=== PATIENT | female | born 1930 | race Caucasian/White ===

== ENCOUNTER 2016-03-19 10:39 | Outpatient (CLI) | payer MEDICARE, BC | END 2016-03-19 10:40 | disposition home or self-care (01) | DX: I48.91 Unspecified atrial fibrillation (principal); Z79.01 Long term (current) use of anticoagulants; Z79.899 Other long term (current) drug therapy ==

== ENCOUNTER 2016-04-09 13:42 | Outpatient (CLI) | payer MEDICARE, BC | END 2016-04-09 13:43 | disposition home or self-care (01) | DX: I48.91 Unspecified atrial fibrillation (principal); Z79.01 Long term (current) use of anticoagulants; Z79.899 Other long term (current) drug therapy ==

== ENCOUNTER 2016-05-08 13:06 | Outpatient (CLI) | payer MEDICARE, BC | END 2016-05-08 13:07 | disposition home or self-care (01) | DX: I48.91 Unspecified atrial fibrillation (principal); Z79.01 Long term (current) use of anticoagulants; Z79.899 Other long term (current) drug therapy ==

== ENCOUNTER 2016-06-05 14:41 | Outpatient (CLI) | payer MEDICARE, BC | END 2016-06-05 14:42 | disposition home or self-care (01) | DX: I48.91 Unspecified atrial fibrillation (principal); Z79.01 Long term (current) use of anticoagulants; Z79.899 Other long term (current) drug therapy ==

== ENCOUNTER 2016-07-03 08:00 | Outpatient (CLI) | payer MEDICARE, BC | END 2016-07-03 08:01 | disposition home or self-care (01) | DX: I48.91 Unspecified atrial fibrillation (principal); Z79.01 Long term (current) use of anticoagulants; Z79.899 Other long term (current) drug therapy ==

== ENCOUNTER 2016-07-31 13:34 | Outpatient (CLI) | payer MEDICARE, BC | END 2016-07-31 13:35 | disposition home or self-care (01) | LOC: LAB.F 13:34 | PROVIDERS: ATTEND Internal Medicine Cardiovascular Disease | DX: I48.91 Unspecified atrial fibrillation (principal); Z79.01 Long term (current) use of anticoagulants; Z79.899 Other long term (current) drug therapy | CPT/HCPCS: 85610 ==

== ENCOUNTER 2016-08-22 13:03 | Outpatient (CLI) | payer MEDICARE, BC | END 2016-08-22 13:04 | disposition home or self-care (01) | LOC: LAB.F 13:03 | PROVIDERS: ATTEND Internal Medicine Cardiovascular Disease | DX: I48.91 Unspecified atrial fibrillation (principal); Z79.01 Long term (current) use of anticoagulants; Z79.899 Other long term (current) drug therapy | CPT/HCPCS: 85610 ==

== ENCOUNTER 2016-09-19 14:07 | Outpatient (CLI) | payer MEDICARE, BC | END 2016-09-19 14:08 | disposition home or self-care (01) | LOC: LAB.F 14:07 | PROVIDERS: ATTEND Internal Medicine Cardiovascular Disease | DX: I48.91 Unspecified atrial fibrillation (principal); Z79.01 Long term (current) use of anticoagulants; Z79.899 Other long term (current) drug therapy | CPT/HCPCS: 85610 ==

== ENCOUNTER 2016-10-17 11:05 | Outpatient (CLI) | payer MEDICARE, BC | END 2016-10-17 11:06 | disposition home or self-care (01) | LOC: LAB.F 11:05 | PROVIDERS: ATTEND Internal Medicine Cardiovascular Disease | DX: I48.91 Unspecified atrial fibrillation (principal); Z79.01 Long term (current) use of anticoagulants; Z79.899 Other long term (current) drug therapy | CPT/HCPCS: 85610 ==

== ENCOUNTER 2016-11-14 14:04 | Outpatient (CLI) | payer MEDICARE, BC | END 2016-11-14 14:05 | disposition home or self-care (01) | LOC: LAB.F 14:04 | PROVIDERS: ATTEND Internal Medicine Cardiovascular Disease | DX: I48.91 Unspecified atrial fibrillation (principal); Z79.01 Long term (current) use of anticoagulants; Z79.899 Other long term (current) drug therapy | CPT/HCPCS: 85610 ==

== ENCOUNTER 2016-12-17 13:50 | Outpatient (CLI) | payer MEDICARE, BC | END 2016-12-17 13:51 | disposition home or self-care (01) | LOC: LAB.F 13:50 | PROVIDERS: ATTEND Internal Medicine Cardiovascular Disease | DX: I48.91 Unspecified atrial fibrillation (principal); Z79.01 Long term (current) use of anticoagulants; Z79.899 Other long term (current) drug therapy | CPT/HCPCS: 85610 ==

== ENCOUNTER 2016-12-31 13:18 | Outpatient (CLI) | payer MEDICARE, BC | END 2016-12-31 13:19 | disposition home or self-care (01) | LOC: LAB.F 13:18 | PROVIDERS: ATTEND Internal Medicine Cardiovascular Disease | DX: I48.91 Unspecified atrial fibrillation (principal); Z79.01 Long term (current) use of anticoagulants; Z79.899 Other long term (current) drug therapy | CPT/HCPCS: 85610 ==

== ENCOUNTER 2017-01-21 14:54 | Outpatient (CLI) | payer MEDICARE, BC | END 2017-01-21 14:55 | disposition home or self-care (01) | LOC: LAB.F 14:54 | PROVIDERS: ATTEND Internal Medicine Cardiovascular Disease | DX: I48.91 Unspecified atrial fibrillation (principal); Z79.01 Long term (current) use of anticoagulants; Z79.899 Other long term (current) drug therapy | CPT/HCPCS: 85610 ==

== ENCOUNTER 2017-02-04 14:22 | Outpatient (CLI) | payer MEDICARE, BC | END 2017-02-04 14:23 | disposition home or self-care (01) | LOC: LAB.F 14:22 | PROVIDERS: ATTEND Internal Medicine Cardiovascular Disease | DX: I48.91 Unspecified atrial fibrillation (principal); Z79.01 Long term (current) use of anticoagulants; Z79.899 Other long term (current) drug therapy | CPT/HCPCS: 85610 ==

== ENCOUNTER 2017-02-18 15:13 | Outpatient (CLI) | payer MEDICARE, BC | END 2017-02-18 15:14 | disposition home or self-care (01) | LOC: LAB.F 15:13 | PROVIDERS: ATTEND Internal Medicine Cardiovascular Disease | DX: I48.91 Unspecified atrial fibrillation (principal); Z79.01 Long term (current) use of anticoagulants; Z79.899 Other long term (current) drug therapy | CPT/HCPCS: 85610 ==

== ENCOUNTER 2017-03-04 14:37 | Outpatient (CLI) | payer MEDICARE, BC | END 2017-03-04 14:38 | disposition home or self-care (01) | LOC: LAB.F 14:37 | PROVIDERS: ATTEND Internal Medicine Cardiovascular Disease | DX: I48.91 Unspecified atrial fibrillation (principal); Z51.81 Encounter for therapeutic drug level monitoring; Z79.01 Long term (current) use of anticoagulants | CPT/HCPCS: 85610 ==

== ENCOUNTER 2017-03-25 15:28 | Outpatient (CLI) | payer MEDICARE, BC | END 2017-03-25 15:29 | disposition home or self-care (01) | LOC: LAB.F 15:28 | PROVIDERS: ATTEND Internal Medicine Cardiovascular Disease | DX: I48.91 Unspecified atrial fibrillation (principal) | CPT/HCPCS: 85610 ==

== ENCOUNTER 2017-04-07 14:53 | Outpatient (CLI) | payer MEDICARE, BC | END 2017-04-07 14:54 | disposition home or self-care (01) | LOC: LAB.F 14:53 | PROVIDERS: ATTEND Internal Medicine Cardiovascular Disease | DX: I48.91 Unspecified atrial fibrillation (principal) | CPT/HCPCS: 85610 ==

== ENCOUNTER 2017-04-18 13:12 | Outpatient (CLI) | payer MEDICARE, BC | END 2017-04-18 13:13 | disposition home or self-care (01) | LOC: LAB.F 13:12 | PROVIDERS: ATTEND Internal Medicine Cardiovascular Disease | DX: I48.91 Unspecified atrial fibrillation (principal) | CPT/HCPCS: 85610 ==

== ENCOUNTER 2017-04-25 14:50 | Outpatient (CLI) | payer MEDICARE, BC | END 2017-04-25 14:51 | disposition home or self-care (01) | LOC: LAB.F 14:50 | PROVIDERS: ATTEND Internal Medicine Cardiovascular Disease | DX: I48.91 Unspecified atrial fibrillation (principal) | CPT/HCPCS: 85610 ==

== ENCOUNTER 2017-05-09 14:28 | Outpatient (CLI) | payer MEDICARE, BC | END 2017-05-09 14:29 | disposition home or self-care (01) | LOC: LAB.F 14:28 | PROVIDERS: ATTEND Internal Medicine Cardiovascular Disease | DX: I48.91 Unspecified atrial fibrillation (principal) | CPT/HCPCS: 85610 ==

== ENCOUNTER 2017-05-22 14:13 | Outpatient (CLI) | payer MEDICARE, BC | END 2017-05-22 14:14 | disposition home or self-care (01) | LOC: LAB.F 14:13 | PROVIDERS: ATTEND Internal Medicine Cardiovascular Disease | DX: I48.91 Unspecified atrial fibrillation (principal) | CPT/HCPCS: 85610 ==

== ENCOUNTER 2017-06-06 10:44 | Outpatient (CLI) | payer MEDICARE, BC | END 2017-06-06 10:45 | disposition home or self-care (01) | LOC: LAB.F 10:44 | PROVIDERS: ATTEND Internal Medicine Cardiovascular Disease | DX: I48.91 Unspecified atrial fibrillation (principal) | CPT/HCPCS: 85610 ==

== ENCOUNTER 2017-06-19 13:01 | Outpatient (CLI) | payer MEDICARE, BC | END 2017-06-19 13:02 | disposition home or self-care (01) | LOC: LAB.F 13:01 | PROVIDERS: ATTEND Internal Medicine Cardiovascular Disease | DX: I48.91 Unspecified atrial fibrillation (principal) | CPT/HCPCS: 85610 ==

== ENCOUNTER 2017-07-10 12:33 | Outpatient (CLI) | payer MEDICARE, BC | END 2017-07-10 12:34 | disposition home or self-care (01) | LOC: LAB.F 12:33 | PROVIDERS: ATTEND Internal Medicine Cardiovascular Disease | DX: I48.91 Unspecified atrial fibrillation (principal) | CPT/HCPCS: 85610 ==

== ENCOUNTER 2017-08-01 11:05 | Outpatient (CLI) | payer MEDICARE, BC | END 2017-08-01 11:06 | disposition home or self-care (01) | LOC: LAB.F 11:05 | PROVIDERS: ATTEND Internal Medicine Cardiovascular Disease | DX: I48.91 Unspecified atrial fibrillation (principal) | CPT/HCPCS: 85610 ==

== ENCOUNTER 2017-09-24 13:54 | Outpatient (CLI) | payer MEDICARE, BC | END 2017-09-24 13:55 | disposition home or self-care (01) | LOC: LAB.F 13:54 | PROVIDERS: ATTEND Internal Medicine Cardiovascular Disease | DX: I48.91 Unspecified atrial fibrillation (principal) | CPT/HCPCS: 85610 ==

== ENCOUNTER 2017-10-29 10:20 | Outpatient (CLI) | payer MEDICARE, BC | END 2017-10-29 10:21 | disposition home or self-care (01) | LOC: LAB.F 10:20 | PROVIDERS: ATTEND Internal Medicine Cardiovascular Disease | DX: I48.91 Unspecified atrial fibrillation (principal) | CPT/HCPCS: 85610 ==

== ENCOUNTER 2017-11-27 14:23 | Outpatient (CLI) | payer MEDICARE, BC | END 2017-11-27 14:24 | disposition home or self-care (01) | LOC: LAB.F 14:23 | PROVIDERS: ATTEND Internal Medicine Cardiovascular Disease | DX: I48.91 Unspecified atrial fibrillation (principal) | CPT/HCPCS: 85610 ==

== ENCOUNTER 2017-12-11 09:14 | Outpatient (CLI) | payer MEDICARE, BC ==
[2017-12-11 20:13] LABS: PT - PROTHROMBIN TIME 48.6 secs (9.9-12.6)
[2017-12-11 20:14] LABS: INR 4.6 (0.8-1.2)
== END 2017-12-11 09:15 | disposition home or self-care (01) ==
LOC: LAB.F 09:14
PROVIDERS: ATTEND Internal Medicine Cardiovascular Disease
DX: I48.91 Unspecified atrial fibrillation (principal)
CPT/HCPCS: 36415; 85610

== ENCOUNTER 2017-12-22 10:49 | Outpatient (CLI) | payer MEDICARE, BC | END 2017-12-22 10:50 | disposition home or self-care (01) | LOC: LAB.F 10:49 | PROVIDERS: ATTEND Internal Medicine Cardiovascular Disease | DX: I48.91 Unspecified atrial fibrillation (principal) | CPT/HCPCS: 85610 ==

== ENCOUNTER 2018-01-07 10:31 | Outpatient (CLI) | payer MEDICARE, BC | END 2018-01-07 10:32 | disposition home or self-care (01) | LOC: LAB.F 10:31 | PROVIDERS: ATTEND Internal Medicine Cardiovascular Disease | DX: I48.91 Unspecified atrial fibrillation (principal) | CPT/HCPCS: 85610 ==

== ENCOUNTER 2018-02-04 11:08 | Outpatient (CLI) | payer MEDICARE, BC | END 2018-02-04 11:09 | disposition home or self-care (01) | LOC: LAB.F 11:08 | PROVIDERS: ATTEND Internal Medicine Cardiovascular Disease | DX: I48.91 Unspecified atrial fibrillation (principal) | CPT/HCPCS: 85610 ==

== ENCOUNTER 2018-02-18 13:37 | Outpatient (CLI) | payer MEDICARE, BC | END 2018-02-18 13:38 | disposition home or self-care (01) | LOC: LAB.F 13:37 | PROVIDERS: ATTEND Internal Medicine Cardiovascular Disease | DX: I48.91 Unspecified atrial fibrillation (principal) | CPT/HCPCS: 85610 ==

== ENCOUNTER 2018-03-04 12:45 | Outpatient (CLI) | payer MEDICARE, BC | END 2018-03-04 12:46 | disposition home or self-care (01) | LOC: DI 12:45 | PROVIDERS: ATTEND Internal Medicine Cardiovascular Disease | DX: I48.91 Unspecified atrial fibrillation (principal); I50.30 Unspecified diastolic (congestive) heart failure; I08.3 Combined rheumatic disorders of mitral, aortic and tricuspid valves | CPT/HCPCS: 93306 ==

== ENCOUNTER 2018-03-11 13:31 | Outpatient (CLI) | payer MEDICARE, BC | END 2018-03-11 13:32 | disposition home or self-care (01) | LOC: LAB.F 13:31 | PROVIDERS: ATTEND Internal Medicine Cardiovascular Disease | DX: I48.91 Unspecified atrial fibrillation (principal) | CPT/HCPCS: 85610 ==

== ENCOUNTER 2018-04-08 11:20 | Outpatient (CLI) | payer MEDICARE, BC | END 2018-04-08 11:21 | disposition home or self-care (01) | LOC: LAB.F 11:20 | PROVIDERS: ATTEND Internal Medicine Cardiovascular Disease | DX: I48.91 Unspecified atrial fibrillation (principal) | CPT/HCPCS: 85610 ==

== ENCOUNTER 2018-05-06 08:00 | Outpatient (CLI) | payer MEDICARE, BC | END 2018-05-06 23:59 | disposition home or self-care (01) | LOC: LAB.F 08:00 | PROVIDERS: ATTEND Internal Medicine Cardiovascular Disease | DX: I48.91 Unspecified atrial fibrillation (principal) | CPT/HCPCS: 85610 ==

== ENCOUNTER 2018-05-11 13:19 | Outpatient (CLI) | payer MEDICARE, BC | END 2018-05-11 13:20 | disposition home or self-care (01) | LOC: LAB.F 13:19 | PROVIDERS: ATTEND Internal Medicine Cardiovascular Disease | DX: I48.91 Unspecified atrial fibrillation (principal) | CPT/HCPCS: 85610 ==

== ENCOUNTER 2018-05-18 13:42 | Outpatient (CLI) | payer MEDICARE, BC | END 2018-05-18 13:43 | disposition home or self-care (01) | LOC: LAB.F 13:42 | PROVIDERS: ATTEND Internal Medicine Cardiovascular Disease | DX: I48.91 Unspecified atrial fibrillation (principal) | CPT/HCPCS: 85610 ==

== ENCOUNTER 2018-05-25 10:09 | Outpatient (CLI) | payer MEDICARE, BC | END 2018-05-25 10:10 | disposition home or self-care (01) | LOC: LAB.F 10:09 | PROVIDERS: ATTEND Internal Medicine Cardiovascular Disease | DX: I48.91 Unspecified atrial fibrillation (principal) | CPT/HCPCS: 85610 ==

== ENCOUNTER 2018-06-03 13:01 | Outpatient (CLI) | payer MEDICARE, BC | END 2018-06-03 13:02 | disposition home or self-care (01) | LOC: LAB.F 13:01 | PROVIDERS: ATTEND Internal Medicine Cardiovascular Disease | DX: I48.91 Unspecified atrial fibrillation (principal) | CPT/HCPCS: 85610 ==

== ENCOUNTER 2018-06-12 08:00 | Outpatient (CLI) | payer MEDICARE, BC | END 2018-06-12 23:59 | disposition home or self-care (01) | LOC: LAB.F 08:00 | PROVIDERS: ATTEND Internal Medicine Cardiovascular Disease | DX: I48.91 Unspecified atrial fibrillation (principal) | CPT/HCPCS: 85610 ==

== ENCOUNTER 2018-06-23 14:10 | Outpatient (CLI) | payer MEDICARE, BC | END 2018-06-23 14:11 | disposition home or self-care (01) | LOC: LAB.F 14:10 | PROVIDERS: ATTEND Internal Medicine Cardiovascular Disease | DX: I48.91 Unspecified atrial fibrillation (principal) | CPT/HCPCS: 85610 ==

== ENCOUNTER 2018-07-06 11:23 | Outpatient (CLI) | payer MEDICARE, BC ==
--- NOTE | 2018-07-06 13:04 | XRAY Report ---
Reason: HIP PAIN Procedure Date: 07/06/2018 Accession Number: [id number] / [id number] Procedure: XR - Hips 2V BILAT CPT Code: FULL RESULT: EXAM: BILATERAL HIP RADIOGRAPHY EXAM DATE: 07/06/2018 11:59 AM. CLINICAL HISTORY: Hip pain, greater on the left side. COMPARISON: None. TECHNIQUE: 2 views each. FINDINGS: Bones: No fractures or bone destructive lesion. Right Hip: No dislocation. The hip joint space is preserved. Left Hip: No dislocation. The hip joint space is preserved. Soft Tissues: No soft tissue swelling or periarticular calcification. There is a cluster of ill-defined foci of small calcification in the left mid-lower pelvic area, overall 3.2 cm, likely calcified fibroid. Other: Moderate degenerative disk disease at L4-L5 is noted. IMPRESSION: 1. Negative bilateral hip radiography. 2. Moderate degenerative disk disease in the lower lumbar spine. 3. A cluster of small calcified foci in the left mid low pelvis, likely calcified uterine fibroid, otherwise nonspecific. RADIA
== END 2018-07-06 11:24 | disposition home or self-care (01) ==
LOC: DI 11:23
PROVIDERS: ATTEND Physician Assistant
DX: M51.36 Other intervertebral disc degeneration, lumbar region (principal)
CPT/HCPCS: 73521

== ENCOUNTER 2018-07-21 13:50 | Outpatient (CLI) | payer MEDICARE, BC | END 2018-07-21 13:51 | disposition home or self-care (01) | LOC: LAB.F 13:50 | PROVIDERS: ATTEND Internal Medicine Cardiovascular Disease | DX: I48.91 Unspecified atrial fibrillation (principal) | CPT/HCPCS: 85610 ==

== ENCOUNTER 2018-07-28 13:14 | Outpatient (CLI) | payer MEDICARE, BC | END 2018-07-28 13:15 | disposition home or self-care (01) | LOC: LAB.F 13:14 | PROVIDERS: ATTEND Internal Medicine Cardiovascular Disease | DX: I48.91 Unspecified atrial fibrillation (principal) | CPT/HCPCS: 85610 ==

== ENCOUNTER 2018-08-09 18:49 | Emergency (ER) | payer MEDICARE, BC ==
[2018-08-09] MEDS ORDERED: MORPHINE 2 MG/ML SYRINGE IVP STA (19:46)
[2018-08-09] MEDS ORDERED: ONDANSETRON 4 MG/2 ML VIAL IVP STA (19:46)
[2018-08-09] MEDS ORDERED: TETANUS/DIPHTHERIA/PERTUSSIS 0.5 ML SYRINGE IM ONE (19:47)
--- NOTE | 2018-08-09 19:47 | ED Physician Documentation ---
History of Present Illness - Stated complaint Stated Complaint: GLF - Chief complaint Chief Complaint: General - History obtained from History obtained from: Patient - History of Present Illness Timing: Prior to arrival - Additonal information Additional information: Is an 87-year-old woman who was working out in her garden when she tripped over a small fencing that she put up to protect her peonies. She fell breaking her fall with her right wrist. She does not remember hitting her head but she has an abrasion there. She did not pass out. The injury occurred about an hour ago and she complains of pain only in the right wrist and her chronic back pain. Denied neck pain or pain in the lower extremities at all. She has some feeling of tingling in the fingers but no complete loss of sensation. She denies shortness of breath. She does take Coumadin. Review of Systems Skin: reports: Abrasion (s) Musculoskeletal: reports: Back pain (Chronic), Extremity pain (Right wrist). 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 : Chronic bladder infection HEENT: Chronic hearing loss Psych: None Musculoskeletal: Osteoarthritis Derm: None - Past Surgical History Past Surgical History: Yes General: Appendectomy Ortho: Shoulder arthroplasty HEENT: Cataracts - Present Medications Home Medications: Ambulatory Orders Medication Instructions Recorded Confirmed RX: Furosemide 40 mg PO DAILY 05/22/15 10/11/15 RX: Omeprazole 20 mg PO DAILY 05/22/15 10/11/15 RX: Oxybutynin Chloride 1 tab PO DAILY 05/22/15 10/11/15 RX: Warfarin [Coumadin] 1 tab PO DAILY 05/22/15 10/11/15 RX: diltiaZEM CD [Cardizem Cd] 2 tab PO DAILY 05/22/15 10/11/15 Cholecalciferol (Vitamin D3) 5,000 unit PO DAILY 08/02/15 10/11/15 [Vitamin D3] Citalopram Hydrobromide 20 mg ORAL DAILY 10/11/15 10/11/15 [Citalopram HBr] Omeprazole [PriLOSEC] 20 mg PO DAILY 10/11/15 10/11/15 diltiaZEM [Cardizem] 125 mg PO ONCE 10/11/15 10/11/15 Chlorhexidine Gluconate [Peridex] 15 ml MM ACHS 14 Days mouthwash 10/12/15 Hydrocodone/Acetaminophen 1 - 2 each PO Q6H PRN #14 tablet 08/09/18 [Hydrocodon-Acetaminophen 5-325] - Allergies Allergies/Adverse Reactions: Allergies Allergy/AdvReac Type Severity Reaction Status Date / Time No Known Drug Allergies Allergy Verified 10/11/15 23:06 - Social History Does the pt smoke?: Yes Smoking Status: Current every day smoker Does the pt drink ETOH?: Yes Does the pt have substance abuse?: No - Immunizations Immunizations are current?: Yes - POLST Patient has POLST: No PD ED PE NORMAL - Vitals Vital signs reviewed: Yes - General General: Alert and oriented X 3, No acute distress, Well developed/nourished - HEENT HEENT: PERRL, EOMI, Moist mucous membranes, Other (There is an abrasion and just very minor bruising on the right forehead) - Neck Neck: Other (No pain to palpation over the cervical spinous processes.) - Cardiac Cardiac: RRR, Other (She has a 3/6 systolic murmur heard at the left upper sternal border and at the apex.) - Respiratory Respiratory: No respiratory distress, Clear bilaterally - Abdomen Abdomen: Normal bowel sounds, Soft - Derm Derm: Other (Abrasion right forehead) - Extremities Extremities: Other (Obvious deformity of the right wrist. There is some minor abrasion to the dorsal aspect of the forearm. She is able to move her fingers abduct of the thumb. 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, No motor deficit, No sensory deficit, Normal speech Eye Opening: Spontaneous Motor: Obeys Commands Verbal: Oriented GCS Score: 15 Results - Vitals Vitals: Vital Signs - 24 hr 08/09/18 08/09/18 08/09/18 18:51 21:37 22:07 Temperature 36.4 C L Heart Rate 68 83 77 Respiratory 14 16 22 Rate Blood Pressure 100/44 L 114/58 L 116/58 L O2 Saturation 98 93 98 08/09/18 08/09/18 08/09/18 22:12 22:28 22:38 Temperature Heart Rate 81 87 85 Respiratory 20 17 20 Rate Blood Pressure 104/61 100/71 107/59 L O2 Saturation 94 93 94 08/09/18 22:52 Temperature 36.5 C Heart Rate Respiratory Rate Blood Pressure O2 Saturation Oxygen O2 Source Room air - Labs Labs: Laboratory Tests 08/09/18 08/09/18 08/09/18 19:30 19:30 19:30 WBC 6.3 RBC 4.08 L Hgb 12.8 Hct 38.9 MCV 95.3 MCH 31.4 H MCHC 32.9 RDW 14.3 Plt Count 218 MPV 8.5 Neut # (Auto) 3.6 Lymph # (Auto) 1.4 L Marshall # (Auto) 1.3 H Eos # (Auto) 0.0 Baso # (Auto) 0.0 Absolute Nucleated RBC 0.01 Nucleated RBC % 0.2 PT 39.8 H INR 3.6 H Sodium 137 Potassium 3.9 Chloride 101 Carbon Dioxide 25 Anion Gap 11.0 BUN 23 H Creatinine 1.0 Estimated GFR (MDRD) 53 L Glucose 144 H Calcium 9.4 Total Bilirubin 0.7 AST 22 ALT 14 Alkaline Phosphatase 85 Total Protein 7.0 Albumin 4.1 Globulin 2.9 Albumin/Globulin Ratio 1.4 Lipase 33 - Rads (name of study) r wrist Radiology: EMP read contemporaneously, See rad report (Displaced distal radius fracture with angulation posteriorly of approximately 45 degrees.) PD MEDICAL DECISION MAKING - ED course Complexity details: re-evaluated patient, d/w patient, d/w family, d/w executive consultant ED course: Patient INR is 3.6. CBC and BMP are essentially normal. Her wrist imaging shows a displaced angulated distal radius fracture without dislocation. No intra-articular fracture. Chest x-ray was clear and head CT was negative for any intracranial hemorrhage. I discussed the case with Dr. Love Who is on- call for orthopedics. He requested that reduction be done here in the emergency department and Dr. Domniguez is going to assist with that request. Departure - Departure Disposition: 01 Home, Self Care Clinical Impression: Fracture, radius, distal, Abrasion of forehead Condition: Good Instructions: ED Abrasion, ED Fx Upper Ext, ED Head Injury Closed, ED Splint Care Plaster Follow-Up: Tran Bardales PA [Primary Care Provider] - Jina Love MD [Provider Admit Priv/Credential] - Prescriptions: Hydrocodone/Acetaminophen [Hydrocodon-Acetaminophen 5-325] 1 - 2 each PO Q6H PRN #14 tablet PRN Reason: pain Comments: Keep the splint clean and dry. Keep the wound on your forehead clean and covered while it heals. You are given a prescription for hydrocodone if needed for the pain. He can still ice the wrist just do not get the splint wet. If you have increasing pain in the fingers or numbness or delayed capillary refill in the fingers she should follow-up immediately. Contact Dr. Love's office tomorrow for follow-up appointment next week. Discharge Date/Time: 08/09/18 23:04
[2018-08-09 20:00] LABS: BASOPHILS % (AUTO) 0.4 %; EOSINOPHILS % (AUTO) 0.5 %; HGB - HEMOGLOBIN 12.8 g/dL (12.0-16.0); LYMPHOCYTES # (AUTO) 1.4 10^3/uL (1.5-3.5); LYMPHOCYTES % (AUTO) 21.4 %; MEAN CORPUSCULAR HEMOGLOBIN 31.4 pg (27.0-31.0); MEAN CORPUSCULAR HGB CONC 32.9 g/dL (32.0-36.0); MEAN CORPUSCULAR VOLUME 95.3 fL (81.0-99.0); MEAN PLATELET VOLUME 8.5 fL (7.9-10.8); MONOCYTES # (AUTO) 1.3 10^3/uL (0.0-1.0); MONOCYTES % (AUTO) 20.2 %; NEUTROPHILS # (AUTO) 3.6 10^3/uL (1.5-6.6); NEUTROPHILS % (AUTO) 57.5 %; PLT - PLATELET COUNT 218 10^3/uL (130-450); RED BLOOD COUNT 4.08 10^6/uL (4.20-5.40); RED CELL DISTRIBUTION WIDTH 14.3 % (12.0-15.0); WHITE BLOOD COUNT 6.3 x10^3/uL (4.8-10.8)
[2018-08-09 20:11] LABS: ALBUMIN 4.1 g/dL (3.2-5.5); ALBUMIN/GLOBULIN RATIO 1.4 (1.0-2.2); BILIRUBIN,TOTAL 0.7 mg/dL (0.2-1.0); CALCIUM 9.4 mg/dL (8.5-10.3)
--- NOTE | 2018-08-09 20:17 | XRAY Report ---
Reason: glf with pain and deformity Procedure Date: 08/09/2018 Accession Number: [id number] / [id number] Procedure: XR - Wrist 3 View RT CPT Code: FULL RESULT: EXAM: RIGHT WRIST RADIOGRAPHY EXAM DATE: 08/09/2018 07:35 PM. CLINICAL HISTORY: Glf with pain and deformity. COMPARISON: HIP BILAT 07/06/2018 11:38 AM. TECHNIQUE: 3 views. FINDINGS: Bones: There is transversely oriented, dorsally angulated fracture through distal right radius. Joints: Radiocarpal articulation is maintained. Soft Tissues: No unexpected soft tissue findings. IMPRESSION: There is transversely oriented, dorsally angulated fracture through the distal right radius. RADIA
--- NOTE | 2018-08-09 20:30 | CT Report ---
Reason: fall on coumadin Procedure Date: 08/09/2018 Accession Number: [id number] / [id number] Procedure: CT - HEAD WO CPT Code: FULL RESULT: EXAM: CT HEAD EXAM DATE: 08/09/2018 08:12 PM. CLINICAL HISTORY: Fall on coumadin. COMPARISON: FACIAL BONES W/O 10/11/2015 11:16 PM. TECHNIQUE: Multiaxial CT images were obtained from the foramen magnum to the vertex. Reformats: Sagittal and coronal. IV contrast: None. In accordance with CT protocol optimization, one or more of the following dose reduction techniques were utilized for this exam: automated exposure control, adjustment of mA and/or KV based on patient size, or use of iterative reconstructive technique. FINDINGS: Parenchyma: No intraparenchymal hemorrhage. No evidence of mass, midline shift, or CT findings of infarction. Wakefield-white differentiation is distinct. Extraaxial Spaces: Normal for age. No subdural or epidural collections identified. Ventricles: Normal in size and position. Sinuses and Orbits: Imaged paranasal sinuses, orbits, and mastoids show no significant abnormality. Bones: No evidence of fracture or calvarial defect. Other: None. IMPRESSION: No acute intracranial CT abnormality. RADIA
--- NOTE | 2018-08-09 20:34 | XRAY Report ---
Reason: GLR with pain to side Procedure Date: 08/09/2018 Accession Number: [id number] / [id number] Procedure: XR - Chest 1 View X-Ray CPT Code: 35706 FULL RESULT: EXAM: CHEST RADIOGRAPHY EXAM DATE: 08/09/2018 07:35 PM. CLINICAL HISTORY: Chest pain COMPARISON: SHOULDER 3 VIEW RT 03/05/2018 10:58 AM. TECHNIQUE: 1 view. FINDINGS: Lungs/Pleura: No focal opacities evident. No pleural effusion. No pneumothorax. Mediastinum: There is cardiomegaly. Other: None. IMPRESSION: No acute intrathoracic plain film abnormality. RADIA
[2018-08-09 20:35] LABS: INR 3.6 (0.8-1.2); PT - PROTHROMBIN TIME 39.8 secs (9.9-12.6)
[2018-08-09] MEDS ORDERED: PROPOFOL 200 MG/20 ML VIAL IVP STA (22:01)
[2018-08-09 22:40] VITALS: BP 107/59
[2018-08-09] MEDS ORDERED: HYDROcod/ACET 5/325 Prepack 4 PO STA (22:48)
--- NOTE | 2018-08-09 22:51 | XRAY Report ---
Reason: post-reduction Procedure Date: 08/09/2018 Accession Number: [id number] / [id number] Procedure: XR - Wrist 2 View RT CPT Code: FULL RESULT: EXAM: RIGHT WRIST RADIOGRAPHY EXAM DATE: 08/09/2018 10:29 PM. CLINICAL HISTORY: Post-reduction. COMPARISON: - - - - - 08/09/2018 6:56 PM. TECHNIQUE: 2 views. FINDINGS: Bones: Improved alignment of the distal radial fracture following closed reduction. Lesser degree of dorsal tilt of the radial articular surface. Joints: Osteoarthritis. Soft Tissues: Soft tissue swelling. Splint material obscures fine detail. IMPRESSION: Improved alignment following closed reduction, with lesser degree of dorsal tilt of the radial articular surface. RADIA
--- NOTE | 2018-08-09 23:23 | ED Physician Documentation ---
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 : Chronic bladder infection HEENT: Chronic hearing loss Psych: None Musculoskeletal: Osteoarthritis Derm: None - Past Surgical History Past Surgical History: Yes General: Appendectomy Ortho: Shoulder arthroplasty HEENT: Cataracts - Present Medications Home Medications: Ambulatory Orders Medication Instructions Recorded Confirmed Furosemide 40 mg PO DAILY 05/22/15 10/11/15 Omeprazole 20 mg PO DAILY 05/22/15 10/11/15 Oxybutynin Chloride 1 tab PO DAILY 05/22/15 10/11/15 Warfarin [Coumadin] 1 tab PO DAILY 05/22/15 10/11/15 diltiaZEM CD [Cardizem Cd] 2 tab PO DAILY 05/22/15 10/11/15 Cholecalciferol (Vitamin D3) 5,000 unit PO DAILY 08/02/15 10/11/15 [Vitamin D3] Citalopram Hydrobromide 20 mg ORAL DAILY 10/11/15 10/11/15 [Citalopram HBr] Omeprazole [PriLOSEC] 20 mg PO DAILY 10/11/15 10/11/15 diltiaZEM [Cardizem] 125 mg PO ONCE 10/11/15 10/11/15 Chlorhexidine Gluconate [Peridex] 15 ml MM ACHS 14 Days mouthwash 10/12/15 Hydrocodone/Acetaminophen 1 - 2 each PO Q6H PRN #14 tablet 08/09/18 [Hydrocodon-Acetaminophen 5-325] - Allergies Allergies/Adverse Reactions: Allergies Allergy/AdvReac Type Severity Reaction Status Date / Time No Known Drug Allergies Allergy Verified 10/11/15 23:06 - Social History Does the pt smoke?: Yes Smoking Status: Current every day smoker Does the pt drink ETOH?: Yes Does the pt have substance abuse?: No - Immunizations Immunizations are current?: Yes - POLST Patient has POLST: No Results - Vitals Vitals: Vital Signs - 24 hr 08/09/18 08/09/1808/09/19 18:51 21:37 22:00 Temperature 36.4 C L Heart Rate 68 83 76 Respiratory 14 16 18 Rate Blood Pressure 100/44 L 114/58 L O2 Saturation 98 93 08/09/18 08/09/18 08/09/18 22:07 22:12 22:28 Temperature Heart Rate 77 81 87 Respiratory 22 20 17 Rate Blood Pressure 116/58 L 104/61 100/71 O2 Saturation 98 94 93 08/09/18 08/09/18 22:38 22:52 Temperature 36.5 C Heart Rate 85 Respiratory 20 Rate Blood Pressure 107/59 L O2 Saturation 94 Oxygen O2 Source Room air - Labs Labs: Laboratory Tests 08/09/18 08/09/18 08/09/18 19:30 19:30 19:30 WBC 6.3 RBC 4.08 L Hgb 12.8 Hct 38.9 MCV 95.3 MCH 31.4 H MCHC 32.9 RDW 14.3 Plt Count 218 MPV 8.5 Neut # (Auto) 3.6 Lymph # (Auto) 1.4 L Morgan # (Auto) 1.3 H Eos # (Auto) 0.0 Baso # (Auto) 0.0 Absolute Nucleated RBC 0.01 Nucleated RBC % 0.2 PT 39.8 H INR 3.6 H Sodium 137 Potassium 3.9 Chloride 101 Carbon Dioxide 25 Anion Gap 11.0 BUN 23 H Creatinine 1.0 Estimated GFR (MDRD) 53 L Glucose 144 H Calcium 9.4 Total Bilirubin 0.7 AST 22 ALT 14 Alkaline Phosphatase 85 Total Protein 7.0 Albumin 4.1 Globulin 2.9 Albumin/Globulin Ratio 1.4 Lipase 33 - Rads (name of study) wrist Radiology: Prelim report reviewed (Impression: There is transversely oriented, dorsally angulated fracture through the distal right radius.), EMP read indepedently, See rad report wrist post reduction Radiology: Prelim report reviewed (Impression: Improved alignment following clos ed reduction, with lesser degree of dorsal tilt of the radial articular surface.), EMP read indepedently, See rad report Procedures - Reduction Body part reduced: Right, Wrist Fracture or dislocation: Fracture Anesthesia: Morphine, Propofol Reduction aftercare: NV intact, Xray confirms reduction, Splint applied, Sling - Procedural sedation Sedation prep: Informed consent, Time out completed, Last meal (5pm), AHA 2 - mild disease Sedation medications: morphine, propofol, given by MD Patient status during sedation: Responds to tactile, Maintained airway, Recovered uneventfully Sedation recovery: Recovered uneventfully, Back to baseline Time in sedation (Minutes): 14 PD MEDICAL DECISION MAKING - ED course Complexity details: reviewed results, re-evaluated patient, considered differential, d/w patient, d/w family ED course: asked to help with fracture reduction procedure with Dr. Watson. I specifically administered propofol for the procedure and assisted with the reduction. See Dr. Watson's note for details of exam and history. Departure - Departure Disposition: 01 Home, Self Care Clinical Impression: Fracture, radius, distal Qualifiers: Encounter type: initial encounter Fracture type: closed Fracture morphology: Colles' Laterality: right Qualified Code(s): S52.531A - Colles' fracture of right radius, initial encounter for closed fracture Abrasion of forehead Qualifiers: Encounter type: initial encounter Qualified Code(s): S00.81XA - Abrasion of other part of head, initial encounter Condition: Good Instructions: ED Abrasion, ED Fx Upper Ext, ED Head Injury Closed, ED Splint Care Plaster Follow-Up: Tran Bardales PA [Primary Care Provider] - Jina Love MD [Provider Admit Priv/Credential] - Prescriptions: Hydrocodone/Acetaminophen [Hydrocodon-Acetaminophen 5-325] 1 - 2 each PO Q6H PRN #14 tablet PRN Reason: pain Comments: Keep the splint clean and dry. Keep the wound on your forehead clean and covered while it heals. You are given a prescription for hydrocodone if needed for the pain. He can still ice the wrist just do not get the splint wet. If you have increasing pain in the fingers or numbness or delayed capillary refill in the fingers she should follow-up immediately. Contact Dr. Love's office tomorrow for follow-up appointment next week. Discharge Date/Time: 08/09/18 23:04
== END 2018-08-09 23:04 | disposition home or self-care (01) ==
LOC: ED 18:49
DX: S52.531A Colles' fracture of right radius, initial encounter for closed fracture (principal); S00.81XA Abrasion of other part of head, initial encounter; S50.811A Abrasion of right forearm, initial encounter; W01.0XXA Fall on same level from slipping, tripping and stumbling without subsequent striking against object, initial encounter; Y93.H2 Activity, gardening and landscaping; Y92.007 Garden or yard of unspecified non-institutional (private) residence as the place of occurrence of the external cause; Z23 Encounter for immunization; I10 Essential (primary) hypertension; I48.91 Unspecified atrial fibrillation; Z79.01 Long term (current) use of anticoagulants; F17.200 Nicotine dependence, unspecified, uncomplicated
CPT/HCPCS: 25605; 36415; 70450; 71045; 73100; 73110; 80053; 83690; 85025; 85610; 90471; 90715; 94770; 96374; 96375; 99152; 99283; 99284; J2270

== ENCOUNTER 2018-08-13 14:25 | Outpatient (CLI) | payer MEDICARE, BC ==
[2018-08-13 15:15] LABS: BASOPHILS % (AUTO) 0.3 %; EOSINOPHILS % (AUTO) 0.2 %; HGB - HEMOGLOBIN 11.7 g/dL (12.0-16.0); LYMPHOCYTES # (AUTO) 0.7 10^3/uL (1.5-3.5); LYMPHOCYTES % (AUTO) 8.1 %; MEAN CORPUSCULAR HEMOGLOBIN 31.4 pg (27.0-31.0); MEAN CORPUSCULAR HGB CONC 33.1 g/dL (32.0-36.0); MEAN PLATELET VOLUME 8.8 fL (7.9-10.8); MONOCYTES # (AUTO) 2.6 10^3/uL (0.0-1.0); NEUTROPHILS # (AUTO) 5.5 10^3/uL (1.5-6.6); NEUTROPHILS % (AUTO) 62.4 %; PLT - PLATELET COUNT 186 10^3/uL (130-450); RED BLOOD COUNT 3.72 10^6/uL (4.20-5.40); RED CELL DISTRIBUTION WIDTH 14.6 % (12.0-15.0); WHITE BLOOD COUNT 8.9 x10^3/uL (4.8-10.8)
[2018-08-13 15:24] LABS: CALCIUM 9.1 mg/dL (8.5-10.3); CREATININE 0.9 mg/dL (0.4-1.0)
[2018-08-13 15:36] LABS: INR 2.5 (0.8-1.2); PT - PROTHROMBIN TIME 28.1 secs (9.9-12.6)
[2018-08-13 15:59] LABS: DIFFERENTIAL COMMENT MANUAL=AUTO DIFF; PLATELET ESTIMATE, MANUAL NORMAL (130-450,000) (NORMAL); PLATELET MORPHOLOGY NORMAL APPEARANCE (NORMAL); RBC MORPHOLOGY (MULTIPLE) NORMAL APPEARANCE (NORMAL)
== END 2018-08-13 14:26 | disposition home or self-care (01) ==
LOC: LAB 14:25
PROVIDERS: ATTEND Orthopaedic Surgery
DX: I50.9 Heart failure, unspecified (principal); S52.591D Other fractures of lower end of right radius, subsequent encounter for closed fracture with routine healing
CPT/HCPCS: 36415; 80048; 85025; 85610

== ENCOUNTER 2018-08-18 06:12 | Day surgery (SDC) | payer MEDICARE, BC ==
[2018-08-18] MEDS ORDERED: CEFAZOLIN SODIUM IN 0.9 % NACL 2 GM/100 ML BAG IV ONE (06:30)
[2018-08-18] MEDS ORDERED: LACTATED RINGERS 1,000 ML IV ONE (06:53)
--- NOTE | 2018-08-18 07:06 | ANESTHESIA ---
Pre-Anesthesia VS, & Labs - Diagnosis R radius fx - Procedure ORIF R Radius Vital Signs: Temp Pulse Resp BP Pulse Ox 36.4 C L 82 17 124/75 96 08/18/18 06:30 08/18/18 06:30 08/18/18 06:30 08/18/18 06:30 08/18/18 06:30 Height 5 ft 5 in Weight (kg) 75.2 kg Body Mass Index 26.1 - NPO >8 hours - Is Patient ?: No - Lab Results Lab results reviewed: Yes Home Medications and Allergies Home Medications: Ambulatory Orders C,E,Zinc,Copper 11/Jftai9a/Lut [Ocuvite Adult 50 Plus Softgel] 1 each PO DAILY 08/17/18 Clobetasol 0.05% Oint [Temovate 0.05% Oint] 1 applic TOP BID 08/17/18 Furosemide 0.5 - 1 tab PO DAILY 05/22/15 Warfarin [Coumadin] 0.5 - 1 tab PO DAILY 05/22/15 diltiaZEM CD [Cardizem Cd] 240 mg PO DAILY 05/22/15 Cholecalciferol (Vitamin D3) [Vitamin D3] 5,000 unit PO DAILY 08/02/15 Citalopram Hydrobromide [Citalopram HBr] 20 mg ORAL DAILY 10/11/15 Omeprazole [PriLOSEC] 20 mg PO DAILY 10/11/15 C,E,Zinc,Copper 11/Nvfuo6k/Lut [Ocuvite Adult 50 Plus Softgel] 1 each PO DAILY 08/17/18 Clobetasol 0.05% Oint [Temovate 0.05% Oint] 1 applic TOP BID 08/17/18 Allergies/Adverse Reactions: Allergies Allergy/AdvReac Type Severity Reaction Status Date / Time No Known Drug Allergies Allergy Verified 10/11/15 23:06 Anes History & Medical History - Anesthetic History Anesthesia Complications: reports: No previous complications Family history of Anesthesia Complications: Denies Family history of Malignant Hyperthermia: Denies - Medical History Cardiovascular: reports: Congestive heart failure, Hypertension, Atrial fibrillation Pulmonary: reports: Shortness of breath Gastrointestinal: reports: GERD Urinary: reports: Incontinence, Chronic bladder infection Neuro: reports: None Musculoskeletal: reports: Osteoarthritis Endocrine/Autoimmune: reports: None Blood Disorders: reports: None Skin: reports: None, Eczema Smoking Status: Current every day smoker - Surgical History General: Appendectomy Eyes Ears Nose Throat (EENT): Cataracts, Tonsil/Adenoidectomy Gynecologic: Other Orthopedic: Rotator cuff repair Exam General: Alert, Oriented x3, Cooperative Dental: WNL Mouth Openin Fingerbreadth Neck Mobility: Normal Mallampati classification: II Thyromental Distance: 4-6 cm Respiratory: Lungs clear, Normal breath sounds Cardiovascular: Other (irreg, AF) Neurological: Normal speech Mental/Cognitive Status: Alert/Oriented X3, Normal for patient Cognitive Status: Within normal limits Plan Anesthesia Type: MAC (GA backup), Supraclavicular Block Consent for Procedure(s) Verified and Reviewed: Yes Code Status: Attempt Resuscitation ASA classification: 3-Severe systemic disease Is this case an emergency?: No
[2018-08-18] MEDS ORDERED: LIDOCAINE-MPF 2% 5 ML VIAL IM ONE (08:09)
[2018-08-18] MEDS ORDERED: DEXAMETHASONE 4 MG/ML VIAL IVP ONE (08:09)
[2018-08-18] MEDS ORDERED: ROPIVACAINE 0.5% PF 20 ML VIAL EPI ONE (08:09)
[2018-08-18] MEDS ORDERED: MIDAZOLAM 2 MG/2 ML VIAL IVP ONE (08:09)
[2018-08-18] MEDS ORDERED: ONDANSETRON 4 MG/2 ML VIAL IVP ONE (08:09)
[2018-08-18] MEDS: BUPIVACAINE 0.25%-EPI 1:200000 PF 30 ML VIAL ONE ×2 (08:12→08:29)
[2018-08-18] MEDS ORDERED: FUROSEMIDE 40 MG/4 ML VIAL IVP SCH (09:00)
[2018-08-18] MEDS ORDERED: FUROSEMIDE 40 MG/4 ML VIAL ONE (09:01)
[2018-08-18] MEDS ORDERED: HYDROcod/ACETAM 5/325 MG TABLET PO PRN (09:12)
--- NOTE | 2018-08-18 09:18 | OPERATIVE REPORT ---
Operative Report - General Procedure Date: 08/18/18 Planned Procedure: ORIF right radius fracture. 2-part, non-intraarticular, closed but angulated Pre-Op Diagnosis: right colles fracture Procedure Performed: ORIF right distal radius with locking plate Post Op Diagnosis: same - Procedure Note Primary Surgeon: niki Anesthesia Provider: alissa. Anesthesia Technique: Moderate sedation, Regional block Estimated Blood Loss (mL): 5 Complications: none
[2018-08-18 10:40] VITALS: BP 108/72
--- NOTE | 2018-08-19 08:06 | OPERATIVE REPORT ---
DATE OF SERVICE: 08/18/2018 Physician: Jina Love MD PREOPERATIVE DIAGNOSIS: Angulated, nonintra-articular, closed right distal radial fracture without c omminution. PROCEDURE PERFORMED: Open reduction, internal fixation of right distal radial fracture utilizing a v olar plate. SURGEON: Jina Love MD ANESTHESIA: Regional by Marisol Blake CRNA. INDICATIONS FOR SURGERY: Patient is an 87-year-old female who is status post a fall on her wrist cau sing an angulated right distal radial fracture. An initial closed reduction was done in the emergenc y room and was an incomplete reduction, but an improvement with dorsal angulation of 45 degrees reduc ed down to about 25 degrees, but this fracture was felt to be unstable in clinic and the patient kong red a more optimum reduction and surgery was recommended. FINDINGS AT SURGERY: Patient's fracture was indeed not intra-articular, but it was angulated and the re was soft tissue interposed in the fracture site that would have prevented any improvement in reduc tion without open reduction. DESCRIPTION OF OPERATIVE PROCEDURE: Patient was taken to the operating room. She was given a region al anesthetic. A tourniquet was placed on her upper arm and her forearm and hand were sterilely prep ped and draped in standard fashion. Her limb was exsanguinated and the tourniquet inflated at 250 mm Hg. The patient's wrist was approached through a volar radial incision along 3 inches of the distal radius in line with the flexor carpi radialis and dissecting through the base of that tendon sheath t o expose the underlying fracture and the pronator quadratus muscle, which was taken off the radius an d a full exposure made to allow placement of the smallest plate. The reduction required leverage of the fracture to disengage the soft tissue. Once it was levered into position, it was fairly stable an d in this position, the small plate was fixed to the volar radius utilizing an initial plate holding screw in the oblong hole and then moving the plate into position for optimum capture of both proximal and distal fragments and using standard screw technique, this was accomplished. The C-arm images co nfirmed reduction, screw placement and screw length. At the conclusion, the wound was irrigated thor oughly. The pronator was tacked back with interrupted Vicryl sutures. Subcutaneous tissues were tamie sed with Vicryl, skin with Monocryl. Sterile dressings were applied. The patient was placed in a sm all, well-padded splint and taken to the recovery room in stable condition. ESTIMATED BLOOD LOSS: For the procedure, minimal. COMPLICATIONS: None. COUNTS: Sponge and needle counts correct. TD: 08/19/2018 07:45
== END 2018-08-18 06:13 | disposition home or self-care (01) ==
LOC: SDS 06:12
PROVIDERS: ATTEND Orthopaedic Surgery
PROC: 0PSH04Z Reposition Right Radius with Internal Fixation Device, Open Approach (ICD-10-PCS; principal; 2018-08-18 07:30)
DX: S52.531A Colles' fracture of right radius, initial encounter for closed fracture (principal); F41.9 Anxiety disorder, unspecified; R26.89 Other abnormalities of gait and mobility; I11.0 Hypertensive heart disease with heart failure; I50.9 Heart failure, unspecified; I48.91 Unspecified atrial fibrillation; F17.200 Nicotine dependence, unspecified, uncomplicated; K21.9 Gastro-esophageal reflux disease without esophagitis; Z91.81 History of falling; Z79.01 Long term (current) use of anticoagulants; Z79.899 Other long term (current) drug therapy
CPT/HCPCS: 25607; 85610; C1713; J0690; J2795; J7120

== ENCOUNTER 2018-08-25 14:06 | Outpatient (CLI) | payer MEDICARE, BC | END 2018-08-25 14:07 | disposition home or self-care (01) | LOC: LAB.F 14:06 | PROVIDERS: ATTEND Internal Medicine Cardiovascular Disease | DX: I48.91 Unspecified atrial fibrillation (principal) | CPT/HCPCS: 85610 ==

== ENCOUNTER 2018-09-01 13:11 | Outpatient (CLI) | payer MEDICARE, BC | END 2018-09-01 13:12 | disposition home or self-care (01) | LOC: LAB.F 13:11 | PROVIDERS: ATTEND Internal Medicine Cardiovascular Disease | DX: I48.91 Unspecified atrial fibrillation (principal) | CPT/HCPCS: 85610 ==

== ENCOUNTER 2018-09-15 13:34 | Outpatient (CLI) | payer MEDICARE, BC | END 2018-09-15 13:35 | disposition home or self-care (01) | LOC: LAB.S 13:34 | PROVIDERS: ATTEND Internal Medicine Cardiovascular Disease | DX: I48.91 Unspecified atrial fibrillation (principal) | CPT/HCPCS: 85610 ==

== ENCOUNTER 2018-10-13 13:02 | Outpatient (CLI) | payer MEDICARE, BC | END 2018-10-13 13:03 | disposition home or self-care (01) | LOC: LAB.S 13:02 | PROVIDERS: ATTEND Internal Medicine Cardiovascular Disease | DX: I48.91 Unspecified atrial fibrillation (principal) | CPT/HCPCS: 85610 ==

== ENCOUNTER 2018-10-27 12:57 | Outpatient (CLI) | payer MEDICARE, BC | END 2018-10-27 12:58 | disposition home or self-care (01) | LOC: LAB.S 12:57 | PROVIDERS: ATTEND Internal Medicine Cardiovascular Disease | DX: I48.91 Unspecified atrial fibrillation (principal) | CPT/HCPCS: 85610 ==

== ENCOUNTER 2018-11-10 13:30 | Outpatient (CLI) | payer MEDICARE, BC | END 2018-11-10 13:31 | disposition home or self-care (01) | LOC: LAB.S 13:30 | PROVIDERS: ATTEND Internal Medicine Cardiovascular Disease | DX: I48.91 Unspecified atrial fibrillation (principal) | CPT/HCPCS: 85610 ==

== ENCOUNTER 2018-11-24 14:27 | Outpatient (CLI) | payer MEDICARE, BC ==
--- NOTE | 2018-11-25 15:57 | XRAY Report ---
Reason: SOB, R06.02 Procedure Date: 11/24/2018 Accession Number: [id number] / [id number] Procedure: XRS - Chest 2 View X-Ray CPT Code: 35386 FULL RESULT: EXAM: CHEST RADIOGRAPHY EXAM DATE: 11/24/2018 02:41 PM. CLINICAL HISTORY: Shortness of breath. COMPARISON: 08/09/2018. TECHNIQUE: 2 views. FINDINGS: Lungs/Pleura: New mild symmetrical bilateral perihilar and upper lobe interstitial prominence. No focal consolidation, mass, effusion nor pneumothorax. Borderline overexpanded lungs. Mediastinum: Stable mild cardiomegaly. Other: Chronic right rotator cuff tear. IMPRESSION: 1. Mild cardiomegaly. 2. Mild symmetrical perihilar and upper lobe interstitial prominence. Differential is between very early interstitial edema versus viral syndrome/airway disease. RADIA
== END 2018-11-24 14:28 | disposition home or self-care (01) ==
LOC: DI.S 14:27
PROVIDERS: ATTEND Physician Assistant
DX: R06.02 Shortness of breath (principal); I51.7 Cardiomegaly
CPT/HCPCS: 71046

== ENCOUNTER 2018-12-08 13:18 | Outpatient (CLI) | payer MEDICARE, BC | END 2018-12-08 13:19 | disposition home or self-care (01) | LOC: LAB.S 13:18 | PROVIDERS: ATTEND Internal Medicine Cardiovascular Disease | DX: I48.91 Unspecified atrial fibrillation (principal) | CPT/HCPCS: 85610 ==

== ENCOUNTER 2018-12-11 13:49 | Outpatient (CLI) | payer MEDICARE, BC | END 2018-12-11 13:50 | disposition home or self-care (01) | LOC: LAB.S 13:49 | PROVIDERS: ATTEND Internal Medicine Cardiovascular Disease | DX: I48.91 Unspecified atrial fibrillation (principal) | CPT/HCPCS: 85610 ==

== ENCOUNTER 2018-12-16 13:55 | Outpatient (CLI) | payer MEDICARE, BC | END 2018-12-16 13:56 | disposition home or self-care (01) | LOC: LAB.S 13:55 | PROVIDERS: ATTEND Internal Medicine Cardiovascular Disease | DX: I48.91 Unspecified atrial fibrillation (principal) | CPT/HCPCS: 85610 ==

== ENCOUNTER 2018-12-30 14:51 | Outpatient (CLI) | payer MEDICARE, BC | END 2018-12-30 14:52 | disposition home or self-care (01) | LOC: LAB.S 14:51 | PROVIDERS: ATTEND Internal Medicine Cardiovascular Disease | DX: I48.91 Unspecified atrial fibrillation (principal) | CPT/HCPCS: 85610 ==

== ENCOUNTER 2018-12-31 13:08 | Outpatient (CLI) | payer MEDICARE, BC ==
--- NOTE | 2018-12-31 18:49 | XRAY Report ---
Reason: DYSPNEA ON EXERTION R06.09 Procedure Date: 12/31/2018 Accession Number: [id number] / [id number] Procedure: XRS - Chest 2 View X-Ray CPT Code: 40992 FULL RESULT: EXAM: CHEST RADIOGRAPHY EXAM DATE: 12/31/2018 01:20 PM. CLINICAL HISTORY: DYSPNEA ON EXERTION R06. 09. COMPARISON: CHEST 2 VIEW 11/24/2018 2:52 PM CHEST 2 VIEW PA/LAT 07/31/2012 12:14 PM. TECHNIQUE: 2 views. FINDINGS: Lungs/Pleura: Nonspecific increase in interstitial markings similar to previous. Question infiltrate/nodularity between the left fourth and fifth anterior ribs. No other focal opacities evident. No pleural effusion. No pneumothorax. Normal volumes. Mediastinum: Borderline heart size. Other: Stable degenerative change in the spine. IMPRESSION: Borderline heart size with interstitial prominence similar to 11/24/2018. Question focal infiltrate or nodularity left mid lung. Suggest follow-up chest x-ray in 6-8 weeks for reassessment. RADIA
== END 2018-12-31 13:09 | disposition home or self-care (01) ==
LOC: DI.S 13:08
PROVIDERS: ATTEND Physician Assistant
DX: R91.8 Other nonspecific abnormal finding of lung field (principal)
CPT/HCPCS: 71046

== ENCOUNTER 2019-01-13 13:29 | Outpatient (CLI) | payer MEDICARE, BC | END 2019-01-13 13:30 | disposition home or self-care (01) | LOC: LAB.S 13:29 | PROVIDERS: ATTEND Internal Medicine Cardiovascular Disease | DX: I48.91 Unspecified atrial fibrillation (principal) | CPT/HCPCS: 85610 ==

== ENCOUNTER 2019-02-03 12:09 | Outpatient (CLI) | payer MEDICARE, BC | END 2019-02-03 12:10 | disposition home or self-care (01) | LOC: LAB.S 12:09 | PROVIDERS: ATTEND Internal Medicine Cardiovascular Disease | DX: I48.91 Unspecified atrial fibrillation (principal) | CPT/HCPCS: 85610 ==

== ENCOUNTER 2019-02-24 13:01 | Outpatient (CLI) | payer MEDICARE, BC | END 2019-02-24 13:02 | disposition home or self-care (01) | LOC: LAB.S 13:01 | PROVIDERS: ATTEND Internal Medicine Cardiovascular Disease | DX: Z51.81 Encounter for therapeutic drug level monitoring (principal); Z79.01 Long term (current) use of anticoagulants; I48.21 Permanent atrial fibrillation | CPT/HCPCS: 85610 ==

== ENCOUNTER 2019-03-12 12:56 | Outpatient (CLI) | payer MEDICARE, BC ==
--- NOTE | 2019-03-13 15:32 | XRAY Report ---
Reason: PNEUMONIA, UNSPECIFIED ORGANISM Procedure Date: 03/12/2019 Accession Number: [id number] / [id number] Procedure: XRS - Chest 2 View X-Ray CPT Code: 51935 Final Report FULL RESULT: EXAM: CHEST RADIOGRAPHY EXAM DATE: 03/12/2019 01:06 PM. CLINICAL HISTORY: Pneumonia, unspecified organism. COMPARISON: CHEST 2 VIEW 12/31/2018 1:29 PM. TECHNIQUE: 2 views. FINDINGS: Lungs/Pleura: There is a persistent opacity in the left mid lung, appears more dense compared to the prior chest radiograph from December 2018. Mediastinum: Normal heart size. Unfolded aorta. Other: None. IMPRESSION: There is a persistent left midlung opacity, appears more dense compared to the prior chest radiograph. Considering its persistence, chest CT is suggested for further characterization. RADIA
== END 2019-03-12 12:57 | disposition home or self-care (01) ==
LOC: DI.S 12:56
PROVIDERS: ATTEND Physician Assistant
DX: R91.8 Other nonspecific abnormal finding of lung field (principal)
CPT/HCPCS: 71046

== ENCOUNTER 2019-03-17 13:24 | Outpatient (CLI) | payer MEDICARE, BC | END 2019-03-17 13:25 | disposition home or self-care (01) | LOC: LAB.S 13:24 | PROVIDERS: ATTEND Internal Medicine Cardiovascular Disease | DX: Z51.81 Encounter for therapeutic drug level monitoring (principal); Z79.01 Long term (current) use of anticoagulants; I48.21 Permanent atrial fibrillation | CPT/HCPCS: 85610 ==

== ENCOUNTER 2019-03-31 13:54 | Outpatient (CLI) | payer MEDICARE, BC | END 2019-03-31 13:55 | disposition home or self-care (01) | LOC: LAB.S 13:54 | PROVIDERS: ATTEND Internal Medicine Cardiovascular Disease | DX: Z51.81 Encounter for therapeutic drug level monitoring (principal); Z79.01 Long term (current) use of anticoagulants; I48.21 Permanent atrial fibrillation | CPT/HCPCS: 85610 ==

== ENCOUNTER 2019-04-05 14:31 | Outpatient (CLI) | payer MEDICARE, BC ==
[2019-04-05] MEDS ORDERED: IOVERSOL 320 100 ML VIAL IVP ONE ×2 (14:35→16:07)
[2019-04-05] MEDS ORDERED: IOVERSOL 320 50 ML VIAL ONE (14:35)
[2019-04-05] MEDS ORDERED: IOVERSOL 320 50 ML VIAL PO ONE (16:07)
--- NOTE | 2019-04-06 14:50 | CT Report ---
Reason: ABD PAIN Procedure Date: 04/05/2019 Accession Number: [id number] / [id number] Procedure: CT - Abdomen/Pelvis W CPT Code: Final Report FULL RESULT: EXAM: CT ABDOMEN AND PELVIS EXAM DATE: 04/05/2019 03:54 PM. CLINICAL HISTORY: Abdominal pain. COMPARISONS: None. TECHNIQUE: Routine helical CT imaging was performed through the abdomen and pelvis. IV contrast: OPTI 320 100 mL. Enteric contrast: No. Reconstructions: Coronal and sagittal. In accordance with CT protocol optimization, one or more of the following dose reduction techniques were utilized for this exam: automated exposure control, adjustment of mA and/or KV based on patient size, or use of iterative reconstructive technique. FINDINGS: Lung Bases: Linear changes are noted in the lung bases most likely represent atelectasis. Solid organs: The liver is without evidence of an enhancing mass. There is a low-density lesion in the left lobe of the liver measuring 1.2 cm (image 24 of series 3). This most likely represents cyst or hemangioma. A large gallstone is seen within the gallbladder. There is no evidence of intrahepatic biliary duct dilatation. Peritoneal Cavity/Bowel: There is mucosal thickening of the distal ileum (image 14 of series 5 and image 62 series 3). No adjacent free fluid or fat stranding is noted. There is no CT evidence of acute appendicitis. Diverticulosis of the descending and sigmoid colon is noted. There is no evidence of diverticulitis. Pelvic Organs: Calcified lesions are noted in the pelvis that most likely represent uterine leiomyomas. Vasculature: There is atherosclerosis of the aorta without evidence of aneurysmal dilatation. Bones: Degenerative changes of the thoracic and lumbar spine are noted. IMPRESSION: Mucosal thickening of the distal ileum that is nonspecific but may be secondary to an inflammatory enteritis such as Crohn's disease or an infectious process. Diverticulosis of the descending and sigmoid colon without evidence of diverticulitis. Cholelithiasis without evidence of obstruction. Low-density lesions in the liver that most likely represent cysts or hemangiomas. Probable calcified uterine leiomyomas. RADIA
--- NOTE | 2019-04-06 14:52 | CT Report ---
Reason: BACTERIAL PNEUMONIA Procedure Date: 04/05/2019 Accession Number: [id number] / [id number] Procedure: CT - CHEST W CPT Code: Final Report FULL RESULT: EXAM: CT CHEST EXAM DATE: 04/05/2019 03:54 PM. CLINICAL HISTORY: Bacterial pneumonia. COMPARISONS: 12/05/2008. TECHNIQUE: Routine helical CT imaging was performed through the chest. IV contrast: 100 mL Optiray 320. Oral contrast: 50 mL Optiray 320. Reconstructions: Coronal and sagittal. In accordance with CT protocol optimization, one or more of the following dose reduction techniques were utilized for this exam: automated exposure control, adjustment of mA and/or KV based on patient size, or use of iterative reconstructive technique. FINDINGS: Lungs/Pleura: There is a lobulated lesion with internal gas density and spiculated margins in the left lower lobe of the lung. It measures approximately 3.3 x 4.1 x 6 cm (image 55 of series 2 and image 79 of series 5). Smaller similar alveolar appearing infiltrates are noted in the inferior aspect of the right upper lobe of the lung (image 140 of series 3). There is no pleural effusion or pneumothorax seen. Mediastinum: No mediastinal mass is identified. There is atherosclerosis of the aorta and its branches, including the coronary arteries. Bones: There are degenerative changes of the thoracic spine. Visualized Abdomen: The visualized upper abdomen is without evidence of an enhancing mass. There is a low-density lesion in the liver measuring 7 mm (image 83 of series 2). IMPRESSION: lower lobe lobular infiltrate with small areas of gas density. This may represent an infectious or neoplastic process. New alveolar infiltrates in the inferior aspect of the right upper lobe of the lung that most likely represent an infectious process. Atherosclerosis of the aorta and its branches, including the coronary arteries. RADIA
== END 2019-04-05 14:32 | disposition home or self-care (01) ==
LOC: DI 14:31
PROVIDERS: ATTEND Physician Assistant
DX: J15.9 Unspecified bacterial pneumonia (principal); R10.9 Unspecified abdominal pain; K80.20 Calculus of gallbladder without cholecystitis without obstruction; K57.90 Diverticulosis of intestine, part unspecified, without perforation or abscess without bleeding; K76.9 Liver disease, unspecified
CPT/HCPCS: 71260; 74177; Q9967

== ENCOUNTER 2019-04-14 13:47 | Outpatient (CLI) | payer MEDICARE, BC | END 2019-04-14 13:48 | disposition home or self-care (01) | LOC: LAB.S 13:47 | PROVIDERS: ATTEND Internal Medicine Cardiovascular Disease | DX: I48.21 Permanent atrial fibrillation (principal); Z51.81 Encounter for therapeutic drug level monitoring; Z79.01 Long term (current) use of anticoagulants | CPT/HCPCS: 85610 ==

== ENCOUNTER 2019-04-21 14:16 | Outpatient (CLI) | payer MEDICARE, BC | END 2019-04-21 14:17 | disposition home or self-care (01) | LOC: LAB.S 14:16 | PROVIDERS: ATTEND Internal Medicine Cardiovascular Disease | DX: Z51.81 Encounter for therapeutic drug level monitoring (principal); Z79.01 Long term (current) use of anticoagulants; I48.21 Permanent atrial fibrillation | CPT/HCPCS: 85610 ==

== ENCOUNTER 2019-04-28 12:22 | Outpatient (CLI) | payer MEDICARE, BC | END 2019-04-28 23:59 | disposition home or self-care (01) | LOC: LAB.S 12:22 | PROVIDERS: ATTEND Internal Medicine Cardiovascular Disease | DX: I48.21 Permanent atrial fibrillation (principal); Z51.81 Encounter for therapeutic drug level monitoring; Z79.01 Long term (current) use of anticoagulants | CPT/HCPCS: 85610 ==

== ENCOUNTER 2019-05-19 13:04 | Outpatient (CLI) | payer MEDICARE, BC | END 2019-05-19 13:05 | disposition home or self-care (01) | LOC: LAB.S 13:04 | PROVIDERS: ATTEND Internal Medicine Cardiovascular Disease | DX: I48.21 Permanent atrial fibrillation (principal); Z51.81 Encounter for therapeutic drug level monitoring; Z79.01 Long term (current) use of anticoagulants | CPT/HCPCS: 85610 ==

== ENCOUNTER 2019-05-24 12:55 | Outpatient (CLI) | payer MEDICARE, BC | END 2019-05-24 12:56 | disposition home or self-care (01) | LOC: LAB.S 12:55 | PROVIDERS: ATTEND Internal Medicine Cardiovascular Disease | DX: I48.21 Permanent atrial fibrillation (principal); Z51.81 Encounter for therapeutic drug level monitoring; Z79.01 Long term (current) use of anticoagulants | CPT/HCPCS: 85610 ==

== ENCOUNTER 2019-06-09 11:43 | Outpatient (CLI) | payer MEDICARE, BC | END 2019-06-09 11:44 | disposition home or self-care (01) | LOC: LAB 11:43 | PROVIDERS: ATTEND Internal Medicine Cardiovascular Disease | DX: I48.21 Permanent atrial fibrillation (principal); Z51.81 Encounter for therapeutic drug level monitoring; Z79.01 Long term (current) use of anticoagulants | CPT/HCPCS: 85610 ==

== ENCOUNTER 2019-07-19 13:25 | Outpatient (CLI) | payer MEDICARE, BC | END 2019-07-19 13:26 | disposition home or self-care (01) | LOC: LAB 13:25 | PROVIDERS: ATTEND Internal Medicine Cardiovascular Disease | DX: Z51.81 Encounter for therapeutic drug level monitoring (principal); Z79.01 Long term (current) use of anticoagulants; I48.21 Permanent atrial fibrillation | CPT/HCPCS: 85610 ==

== ENCOUNTER 2019-07-26 12:58 | Outpatient (CLI) | payer MEDICARE, BC | END 2019-07-26 12:59 | disposition home or self-care (01) | LOC: LAB 12:58 | PROVIDERS: ATTEND Internal Medicine Cardiovascular Disease | DX: I48.21 Permanent atrial fibrillation (principal); Z51.81 Encounter for therapeutic drug level monitoring; Z79.01 Long term (current) use of anticoagulants | CPT/HCPCS: 85610 ==

== ENCOUNTER 2019-08-18 14:01 | Outpatient (CLI) | payer MEDICARE, BC | END 2019-08-18 14:02 | disposition home or self-care (01) | LOC: LAB.S 14:01 | PROVIDERS: ATTEND Internal Medicine Cardiovascular Disease | DX: I48.21 Permanent atrial fibrillation (principal); Z51.81 Encounter for therapeutic drug level monitoring; Z79.01 Long term (current) use of anticoagulants | CPT/HCPCS: 85610 ==

== ENCOUNTER 2019-08-25 11:56 | Outpatient (CLI) | payer MEDICARE, BC | END 2019-08-25 11:57 | disposition home or self-care (01) | LOC: LAB.S 11:56 | PROVIDERS: ATTEND Nurse Practitioner Family | DX: I48.21 Permanent atrial fibrillation (principal); Z51.81 Encounter for therapeutic drug level monitoring; Z79.01 Long term (current) use of anticoagulants | CPT/HCPCS: 85610 ==

== ENCOUNTER 2019-09-08 12:37 | Outpatient (CLI) | payer MEDICARE, BC | END 2019-09-08 12:38 | disposition home or self-care (01) | LOC: LAB.S 12:37 | PROVIDERS: ATTEND Internal Medicine Cardiovascular Disease | DX: I48.21 Permanent atrial fibrillation (principal); Z51.81 Encounter for therapeutic drug level monitoring; Z79.01 Long term (current) use of anticoagulants | CPT/HCPCS: 85610 ==

== ENCOUNTER 2019-09-17 12:53 | Outpatient (CLI) | payer MEDICARE, BC | END 2019-09-17 12:54 | disposition home or self-care (01) | LOC: LAB.S 12:53 | PROVIDERS: ATTEND Internal Medicine Cardiovascular Disease | DX: I48.21 Permanent atrial fibrillation (principal); Z51.81 Encounter for therapeutic drug level monitoring; Z79.01 Long term (current) use of anticoagulants | CPT/HCPCS: 85610 ==

== ENCOUNTER 2019-09-20 12:39 | Outpatient (CLI) | payer MEDICARE, BC | END 2019-09-20 12:40 | disposition home or self-care (01) | LOC: LAB.S 12:39 | PROVIDERS: ATTEND Internal Medicine Cardiovascular Disease | DX: Z51.81 Encounter for therapeutic drug level monitoring (principal); Z79.01 Long term (current) use of anticoagulants; I48.21 Permanent atrial fibrillation | CPT/HCPCS: 85610 ==

== ENCOUNTER 2019-09-29 12:30 | Outpatient (CLI) | payer MEDICARE, BC | END 2019-09-29 12:31 | disposition home or self-care (01) | LOC: LAB.S 12:30 | PROVIDERS: ATTEND Internal Medicine Cardiovascular Disease | DX: Z51.81 Encounter for therapeutic drug level monitoring (principal); Z79.01 Long term (current) use of anticoagulants; I48.21 Permanent atrial fibrillation | CPT/HCPCS: 85610 ==

== ENCOUNTER 2019-10-26 11:53 | Outpatient (CLI) | payer MEDICARE, BC | END 2019-10-26 11:54 | disposition home or self-care (01) | LOC: LAB.S 11:53 | PROVIDERS: ATTEND Internal Medicine Cardiovascular Disease | DX: I48.21 Permanent atrial fibrillation (principal); Z51.81 Encounter for therapeutic drug level monitoring; Z79.01 Long term (current) use of anticoagulants | CPT/HCPCS: 85610 ==

== ENCOUNTER 2019-11-09 12:17 | Outpatient (CLI) | payer MEDICARE, BC | END 2019-11-09 12:18 | disposition home or self-care (01) | LOC: LAB.S 12:17 | PROVIDERS: ATTEND Internal Medicine Cardiovascular Disease | DX: I48.21 Permanent atrial fibrillation (principal); Z51.81 Encounter for therapeutic drug level monitoring; Z79.01 Long term (current) use of anticoagulants | CPT/HCPCS: 85610 ==

== ENCOUNTER 2019-11-23 13:11 | Outpatient (CLI) | payer MEDICARE, BC | END 2019-11-23 13:12 | disposition home or self-care (01) | LOC: LAB.S 13:11 | PROVIDERS: ATTEND Internal Medicine Cardiovascular Disease | DX: Z51.81 Encounter for therapeutic drug level monitoring (principal); Z79.01 Long term (current) use of anticoagulants; I48.21 Permanent atrial fibrillation | CPT/HCPCS: 85610 ==

== ENCOUNTER 2019-12-07 13:41 | Outpatient (CLI) | payer MEDICARE, BC | END 2019-12-07 13:42 | disposition home or self-care (01) | LOC: LAB.S 13:41 | PROVIDERS: ATTEND Internal Medicine Cardiovascular Disease | DX: I48.21 Permanent atrial fibrillation (principal); Z51.81 Encounter for therapeutic drug level monitoring; Z79.01 Long term (current) use of anticoagulants | CPT/HCPCS: 85610 ==

== ENCOUNTER 2019-12-22 13:58 | Outpatient (CLI) | payer MEDICARE, BC | END 2019-12-22 13:59 | disposition home or self-care (01) | LOC: LAB.S 13:58 | PROVIDERS: ATTEND Internal Medicine Cardiovascular Disease | DX: I48.21 Permanent atrial fibrillation (principal); Z51.81 Encounter for therapeutic drug level monitoring; Z79.01 Long term (current) use of anticoagulants | CPT/HCPCS: 85610 ==

== ENCOUNTER 2020-01-18 13:27 | Outpatient (CLI) | payer MEDICARE, BC | END 2020-01-18 13:28 | disposition home or self-care (01) | LOC: LAB.S 13:27 | PROVIDERS: ATTEND Internal Medicine Cardiovascular Disease | DX: Z51.81 Encounter for therapeutic drug level monitoring (principal); Z79.01 Long term (current) use of anticoagulants; I48.21 Permanent atrial fibrillation | CPT/HCPCS: 85610 ==

== ENCOUNTER 2020-01-31 12:45 | Outpatient (CLI) | payer MEDICARE, BC ==
[2020-01-31 13:13] LABS: CREATININE 0.9 mg/dL (0.4-1.0)
[2020-01-31] MEDS ORDERED: IOVERSOL 320 100 ML VIAL IVP ONE ×2 (13:51→14:10)
--- NOTE | 2020-01-31 15:03 | CT Report ---
PROCEDURE: CHEST W INDICATIONS: LUNG CA CONTRAST: IV CONTRAST: Optiray 320 ml: 100 PO CONTRAST: *NO PO CONTRAST TECHNIQUE: After the administration of intravenous contrast, 5 mm thick sections acquired from the pulmonary api dot to the posterior costophrenic angles. 7 mm thick coronal MIP reformats were acquired. For radia tion dose reduction, the following was used: automated exposure control, adjustment of mA and/or kV according to patient size. COMPARISON: Prior chest CT 04/05/2019. FINDINGS: Image quality: Excellent. Lungs and pleura: No acute air space opacities. 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 COPD. Cm transverse. It has a craniocaudad length of 4.3 cm and extends to the pleural ko rface. There is a new associated small left effusion, potentially malignant in etiology. No pneumotho rax. Central and peripheral airways are patent and normal in caliber. Mediastinum: Heart size is normal. No pericardial effusion. No mediastinal or hilar adenopathy by size criteria. Thoracic aorta and central pulmonary arteries are normal in size. Esophagus is gail l in caliber. No hiatal hernia. Bones and chest wall: No suspicious bony lesions. No vertebral body compression fractures. No axil aleksandr or supraclavicular adenopathy by size criteria. Thyroid gland appears normal where well seen. Abdomen: Visualized upper abdominal solid organs appear normal. Upper abdominal bowel loops are nor mal in caliber. Note is made of the peripherally calcified moderate size gallstone within the gallbl adder lumen without evidence of acute cholecystitis or biliary obstruction. 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 1.8 cm maximal dimension gallstone within the gallbladder lumen but no sign of biliary obstruction or acute cholecystitis is found. Reviewed by: Rich Beltrán MD on 01/31/2020 3:01 PM PST Approved by: Rich Beltrán MD on 01/31/2020 3:01 PM PST Station ID: [id number]
== END 2020-01-31 12:46 | disposition home or self-care (01) ==
LOC: LAB 12:45
PROVIDERS: ATTEND Radiology Radiation Oncology
DX: C34.32 Malignant neoplasm of lower lobe, left bronchus or lung (principal)
CPT/HCPCS: 36415; 71260; 82565; 84520; Q9967

== ENCOUNTER 2020-02-15 13:51 | Outpatient (CLI) | payer MEDICARE, BC | END 2020-02-15 13:52 | disposition home or self-care (01) | LOC: LAB.S 13:51 | PROVIDERS: ATTEND Internal Medicine Cardiovascular Disease | DX: Z51.81 Encounter for therapeutic drug level monitoring (principal); Z79.01 Long term (current) use of anticoagulants; I48.21 Permanent atrial fibrillation | CPT/HCPCS: 85610 ==

== ENCOUNTER 2020-03-14 13:50 | Outpatient (CLI) | payer MEDICARE, BC ==
[2020-03-14 20:58] LABS: PT - PROTHROMBIN TIME 100.8 secs (9.9-12.6)
[2020-03-14 21:24] LABS: INR > 10.0 (0.8-1.2)
== END 2020-03-14 13:51 | disposition home or self-care (01) ==
LOC: LAB.S 13:50
PROVIDERS: ATTEND Internal Medicine Cardiovascular Disease
DX: Z51.81 Encounter for therapeutic drug level monitoring (principal); Z79.01 Long term (current) use of anticoagulants; I48.21 Permanent atrial fibrillation
CPT/HCPCS: 36415; 85610

== ENCOUNTER 2020-03-21 15:50 | Outpatient (CLI) | payer MEDICARE, BC ==
--- OUTSIDE RECORDS SUMMARY | 2020-03-22 04:51 | EXTERNAL MEDICAL SUMMARY RPT | Continuity of Care Document ---
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[facility] ANTICOAGULANTS 2020-01-18 13:27 PERMANENT ATRIAL FIBRILLATION [facility] 2020-01-18 13:27 ENCOUNTER FOR THERAPEUTIC DRUG [facility] LEVEL MONITORING 2020-01-18 13:27 PENITENTIARY (CURRENT) USE OF [facility] ANTICOAGULANTS 2020-02-15 13:51 PERMANENT ATRIAL FIBRILLATION [facility] 2020-02-15 13:51 ENCOUNTER FOR THERAPEUTIC DRUG [facility] LEVEL MONITORING 2020-02-15 13:51 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 [facility] ANTICOAGULANTS 2020-03-14 13:50 PERMANENT ATRIAL FIBRILLATION [facility] 2020-03-14 13:50 ENCOUNTER FOR THERAPEUTIC DRUG [facility] LEVEL MONITORING 2020-03-14 13:50 PENITENTIARY (CURRENT) USE OF [facility] ANTICOAGULANTS 2020-03-21 15:50 PERMANENT ATRIAL FIBRILLATION [facility] 2020-03-21 15:50 ENCOUNTER FOR THERAPEUTIC DRUG [facility] LEVEL MONITORING 2020-03-21 15:50 PENITENTIARY (CURRENT) USE OF [facility] ANTICOAGULANTS Allergies date description facility SULFA ANTIBIOTICS [facility] No Known Drug Allergies [facility] NO KNOWN ENVIRONMENTAL ALLERGIES [facility] L[facility]OPRIL [facility] No Known Drug Allergies [facility] Results Social History date description facility [id number]
== END 2020-03-21 15:51 | disposition home or self-care (01) ==
LOC: LAB.S 15:50
PROVIDERS: ATTEND Internal Medicine Cardiovascular Disease
DX: I48.21 Permanent atrial fibrillation (principal); Z51.81 Encounter for therapeutic drug level monitoring; Z79.01 Long term (current) use of anticoagulants
CPT/HCPCS: 85610

== ENCOUNTER 2020-03-27 12:06 | Outpatient (CLI) | payer MEDICARE, BC | END 2020-03-27 12:07 | disposition home or self-care (01) | LOC: LAB.S 12:06 | PROVIDERS: ATTEND Internal Medicine Cardiovascular Disease | DX: Z51.81 Encounter for therapeutic drug level monitoring (principal); Z79.01 Long term (current) use of anticoagulants; I48.21 Permanent atrial fibrillation | CPT/HCPCS: 85610 ==

== ENCOUNTER 2020-04-04 12:52 | Outpatient (CLI) | payer MEDICARE, BC | END 2020-04-04 12:53 | disposition home or self-care (01) | LOC: LAB.S 12:52 | PROVIDERS: ATTEND Internal Medicine Cardiovascular Disease | DX: Z51.81 Encounter for therapeutic drug level monitoring (principal); Z79.01 Long term (current) use of anticoagulants; I48.21 Permanent atrial fibrillation | CPT/HCPCS: 85610 ==